=== PATIENT | female | born 1975 | race Two or more races ===

== ENCOUNTER 2019-09-20 18:15 | Emergency (ER) | payer SELFPAY ==
[~2019-09-20] VITALS: Ht 170.2 cm; Wt 77.1 kg
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
[2019-09-20 18:20] VITALS: BP 138/92
--- NOTE | 2019-09-20 18:29 | NUR ---
ED Nurse Note: PD at bedside.
[2019-09-20] MEDS ORDERED: Acetaminophen 500mg (ES) tab ORAL ONE (18:30)
[2019-09-20] MEDS ORDERED: Ketorolac 30mg Inj IM ONE (18:30)
[2019-09-20] MEDS ORDERED: Methocarbamol 750mg tab ORAL ONE (18:30)
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
[2019-09-20] MEDS ORDERED: LIDODERM700 M1 TOPIC (18:36)
[2019-09-20] MEDS ORDERED: TRAMADOL HCL50 MG ORAL (18:36)
[2019-09-20] MEDS ORDERED: IBUPROFEN600 MG ORAL (18:36)
[2019-09-20] MEDS ORDERED: TYLENOL325 MG ORAL (18:36)
[2019-09-20 18:45] VITALS: BP 138/92
[2019-09-20] MEDS ORDERED: Bacitracin Oint UD TOPIC ONE (18:45)
[2019-09-20] MEDS ORDERED: Tetanus/Diptheria/Pertussis IM ONE (18:45)
--- NOTE | 2019-09-20 18:45 | NUR ---
ER DISCHARGE NOTE: Patient is cleared to be discharged per ERMD, pt is aox4, on room air, with stable vital signs. pt was given dc and prescription instructions, pt was able to verbalize understanding, pt id band removed. pt is able to ambulate with steady gait. pt took all belongings.
== END 2019-09-20 18:45 | disposition home or self-care (01) ==
LOC: EDBD 18:15 → EMR 18:25
DX: S30.0XXA Contusion of lower back and pelvis, initial encounter (principal); I10 Essential (primary) hypertension; V49.9XXA Car occupant (driver) (passenger) injured in unspecified traffic accident, initial encounter; Y92.411 Interstate highway as the place of occurrence of the external cause
CPT/HCPCS: 96372; 99283; J1885